=== PATIENT | female | born 1985 | race Caucasian/White ===

== ENCOUNTER 2024-01-30 16:22 | Emergency (ER) | payer OTHER ==
[~2024-01-30] VITALS: Ht 165.1 cm; Wt 152.4 kg
[2024-01-30 16:36] VITALS: BP 171/101; RESP 16; TEMP 97.8; O2SAT 98
[2024-01-30 16:41] VITALS: PULSE 88; O2SAT 98
[2024-01-30 17:38] LABS: BASOPHILS % 0.3 % (0.0-2.0); HEMATOCRIT. 39.2 % (36.0-48.0); HEMOGLOBIN. 13.2 g/dL (12.0-16.0); LYMPHOCYTES % 27.5 % (20.0-50.0); MEAN CORPUSCULAR HEMOGLOBIN 30.2 pg (28.0-32.0); MEAN CORPUSCULAR HGB CONC 33.7 g/dL (31.0-37.0); MEAN CORPUSCULAR VOLUME 89.4 fL (81.0-99.0); MEAN PLATELET VOLUME 9.7 fl (7.4-10.4); MONOCYTES % 5.4 % (2.0-8.0); NEUTROPHILS % 66.8 % (40.0-76.0); PLATELET 212 x1000/uL (130-400); RED BLOOD CELL COUNT 4.39 mill/uL (4.2-5.4); RED CELL DISTRIBUTION WIDTH 13.2 % (11.6-14.6); WHITE BLOOD COUNT 6.8 x1000/uL (4.5-11.0)
[2024-01-30 17:42] LABS: CHLORIDE 106 mEq/L (98-107); SODIUM 138 mEq/L (136-145)
[2024-01-30 17:43] LABS: CALCIUM 8.9 mg/dL (8.7-10.4); CARBON DIOXIDE 25 mEq/L (21-32)
[2024-01-30 17:48] LABS: CREATININE 0.8 mg/dL (0.6-1.0); GLUCOSE 98 mg/dL (70-105); UREA NITROGEN BLOOD 13 mg/dL (9-23)
[2024-01-30] MEDS ORDERED: NAPR-1176 MT (21:10)
[2024-01-30] MEDS ORDERED: LIDO700A15 TP (21:10)
[2024-01-30] MEDS: KETOROLAC 15MG/ML VIAL IM ONE (21:22)
[2024-01-30] MEDS: ACETAMINOPHEN 500MG TABLET PO ONE (21:22)
== END 2024-01-30 21:31 | disposition home or self-care (01) ==
LOC: ER 16:22
DX: R07.81 Pleurodynia (principal); M54.9 Dorsalgia, unspecified; M25.572 Pain in left ankle and joints of left foot; F41.9 Anxiety disorder, unspecified; F32.A Depression, unspecified; M41.80 Other forms of scoliosis, site unspecified; Z98.890 Other specified postprocedural states
CPT/HCPCS: 99284; 71046; 80048; 85025; 36415; 73610; 96372; J1885

== ENCOUNTER 2024-02-02 20:21 | Emergency (ER) | payer OTHER ==
[~2024-02-02] VITALS: Ht 165.1 cm; Wt 155.0 kg
[~2024-02-02 20:21] MED LIST: LIDO700A15 TP; NAPR-1176 MT
[2024-02-02 20:31] VITALS: O2SAT 100
[2024-02-02 20:41] VITALS: TEMP 98.4; O2SAT 98
[2024-02-02 21:04] LABS: BASOPHILS % 0.1 % (0.0-2.0); HEMATOCRIT. 37.7 % (36.0-48.0); HEMOGLOBIN. 12.7 g/dL (12.0-16.0); MEAN CORPUSCULAR HEMOGLOBIN 30.3 pg (28.0-32.0); MEAN CORPUSCULAR HGB CONC 33.6 g/dL (31.0-37.0); MEAN CORPUSCULAR VOLUME 90.1 fL (81.0-99.0); MEAN PLATELET VOLUME 9.4 fl (7.4-10.4); MONOCYTES % 4.7 % (2.0-8.0); NEUTROPHILS % 69.2 % (40.0-76.0); PLATELET 189 x1000/uL (130-400); RED BLOOD CELL COUNT 4.19 mill/uL (4.2-5.4); WHITE BLOOD COUNT 7.4 x1000/uL (4.5-11.0)
[2024-02-02 21:07] LABS: CHLORIDE 105 mEq/L (98-107); POTASSIUM 3.5 mEq/L (3.5-5.1); SODIUM 137 mEq/L (136-145)
[2024-02-02 21:08] LABS: CALCIUM 8.4 mg/dL (8.7-10.4); CARBON DIOXIDE 27 mEq/L (21-32)
[2024-02-02 21:13] LABS: CREATININE 0.7 mg/dL (0.6-1.0); GLUCOSE 101 mg/dL (70-105); UREA NITROGEN BLOOD 9 mg/dL (9-23)
[2024-02-02 21:15] LABS: ALANINE AMINOTRANSFERASE 23 IU/L (10-49); ALBUMIN 3.9 g/dL (3.2-4.8); ASPARTATE AMINOTRANSFERASE 17 IU/L (<34); BILIRUBIN TOTAL 0.3 mg/dL (0.1-1.0)
[2024-02-02 21:16] LABS: BILIRUBIN DIRECT < 0.1 mg/dL (<=3.0); PROTEIN TOTAL 6.7 g/dL (6.0-8.3)
[2024-02-02 22:53] VITALS: BP 136/79; PULSE 70; RESP 22
[2024-02-02] MEDS: KETOROLAC 15MG/ML VIAL IM ONE (22:53)
== END 2024-02-03 03:00 | disposition home or self-care (01) ==
LOC: ER 20:21
DX: R10.11 Right upper quadrant pain (principal); F41.9 Anxiety disorder, unspecified; F32.9 Major depressive disorder, single episode, unspecified
CPT/HCPCS: 80076; 80048; 83690; 85025; 36415; 96372; 99285; 76700; J1885; Z7610